=== PATIENT | female | born 1995 | race Caucasian/White ===

== ENCOUNTER 2018-12-09 14:20 | Emergency (ER) | payer OTHER, BC ==
[2018-12-09 14:20] VITALS: BP 164/92
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
[2018-12-09] MEDS ORDERED: IV NORMAL SALINE 1,000ML 1,000 ML IV ONE (15:30)
[2018-12-09] MEDS ORDERED: KETOROLAC 30 MG/ML VIAL. IV ONE (15:30)
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
[2018-12-09] MEDS ORDERED: diphenhydrAMINE 50 MG/ML VIAL IVP ONE (15:45)
[2018-12-09] MEDS ORDERED: METOCLOPRAMIDE HCL 10 MG/2 ML VIAL. IV ONE (15:45)
[2018-12-09 15:47] LABS: BASO # 0.1 x10^3/uL (0.0-0.2); BASO % 2 % (0-3); EOS # 0.2 x10^3/uL (0.0-0.7); EOS % 3 % (0-3); HEMATOCRIT 42.7 % (36.0-47.0); HEMOGLOBIN 14.5 g/dL (12.0-15.5); LYMPH # 1.7 x10^3/uL (1.0-4.8); LYMPH % 24 % (24-48); MEAN CORPUSCULAR HEMOGLOBIN 28 pg (25-35); MEAN CORPUSCULAR HGB CONC 34 g/dL (31-37); MEAN CORPUSCULAR VOLUME 83 fL (79-100); MONO # 0.5 x10^3/uL (0.0-1.1); MONO % 7 % (0-9); NEUT # 4.6 x10^3uL (1.8-7.7); NEUT % 65 % (31-73); PLATELET COUNT 281 x10^3/uL (140-400); RED BLOOD COUNT 5.15 x10^6/uL (3.50-5.40); RED CELL DISTRIBUTION WIDTH 13.1 % (11.5-14.5)
[2018-12-09] MEDS ORDERED: CYCL-331 PO (15:52)
[2018-12-09] MEDS ORDERED: HYDR-3165 PO (15:52)
[2018-12-09] MEDS ORDERED: HYDROcodone/APAP 5/325MG 1 TAB TABLET PO ONE (16:00)
[2018-12-09 16:01] LABS: ALBUMIN 3.8 g/dL (3.4-5.0); ALBUMIN/GLOBULIN RATIO 0.9 (1.0-1.7); CALCIUM 9.1 mg/dL (8.5-10.1); CREATININE 0.7 mg/dL (0.6-1.0); GFR 105.6; POTASSIUM 4.3 mmol/L (3.5-5.1); TOTAL BILIRUBIN 0.4 mg/dL (0.2-1.0)
[2018-12-09 16:26] LABS: BACTERIA,URINE MOD /HPF (0-FEW); BILIRUBIN,URINE NEG (NEG); CLARITY,URINE CLEAR; COLOR,URINE YELLOW; GLUCOSE,URINE NEG (NEG); NITRITE,URINE NEG (NEG); RBC,URINE 0 /HPF (0-2); SQUAMOUS EPITHELIAL CELL,UR OCC /LPF; UROBILINOGEN,URINE 0.2 mg/dL (0.2 mg/dL)
== END 2018-12-09 16:15 | disposition home or self-care (01) ==
LOC: ER 14:20
DX: M25.511 Pain in right shoulder (principal); R51 Headache; M54.2 Cervicalgia; M54.89 Other dorsalgia; V49.49XA Driver injured in collision with other motor vehicles in traffic accident, initial encounter; Y93.I9 Activity, other involving external motion; Y92.488 Other paved roadways as the place of occurrence of the external cause; Y99.8 Other external cause status; G89.11 Acute pain due to trauma
CPT/HCPCS: 36415; 70450; 72125; 73030; 80053; 81001; 81025; 85025; 87086; 96374; 96375; 99284; J1200; J1885; J2765; J7030

== ENCOUNTER 2018-12-22 15:37 | Emergency (ER) | payer OTHER, BC ==
[~2018-12-22] VITALS: Ht 175.3 cm; Wt 137.3 kg
[~2018-12-22 15:37] MED LIST: CYCL-331 PO; HYDR-3165 PO
[2018-12-22 15:51] VITALS: BP 161/100
[2018-12-22] MEDS ORDERED: ORPH-16 PO (16:12)
[2018-12-22] MEDS ORDERED: MELO7.5T29 PO (16:12)
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
== END 2018-12-22 16:27 | disposition home or self-care (01) ==
LOC: ER 15:37
DX: S16.1XXD Strain of muscle, fascia and tendon at neck level, subsequent encounter (principal); M25.511 Pain in right shoulder; V49.9XXD Car occupant (driver) (passenger) injured in unspecified traffic accident, subsequent encounter
CPT/HCPCS: 99283

== ENCOUNTER 2021-08-03 21:25 | Emergency (ER) | payer BC, OTHER ==
[~2021-08-03] VITALS: Ht 175.3 cm; Wt 137.3 kg
[~2021-08-03 21:25] MED LIST changes: -CYCL-331 PO; +CYCL10TA19 PO; +MELO7.5T29 PO; +ORPH-16 PO
[2021-08-03 21:30] VITALS: BP 159/90
--- NOTE | 2021-08-03 21:58 | RAD ---
Exam: Left knee 3 views INDICATION: Injury, left knee pain TECHNIQUE: Frontal, lateral and oblique views left knee Comparisons: None FINDINGS: Bone mineralization is normal. No acute or healed fractures. Soft tissues are unremarkable. Joint spa alexi are well-maintained. IMPRESSION: No acute osseous abnormality. Electronically signed by: Anna Malone MD (08/03/2021 9:55 PM) [facility]
[2021-08-03] MEDS ORDERED: HYDR-2759 PO (22:13)
--- NOTE | 2021-08-03 22:14 | PHYS DOC ---
Past History Past Medical History: No Pertinent History Past Surgical History: Other Additional Smoking Information: VAPES Alcohol Use: Rarely Drug Use: Marijuana General Adult EDM: Chief Complaint: KNEE INJURY HPI: HPI: 26-year-old female presents with left knee pain. Patient works at [employer]. She was stepping out of a truck when she put her weight onto that leg she heard a popping sensation and she had shooting pain in the middle of her knee. She stated that it felt like almost gave out but she did not fall to the ground. This was 2 days ago. It is still painful and swollen. She has been taking ibuprofen at home. It is most difficult for her to be able to sleep. She is able to walk on it but it is painful. She denies numbness, tingling, or altered sensation. Review of Systems: Review of Systems: Constitutional: Denies fever or chills Eyes: Denies change in visual acuity HENT: Denies nasal congestion or sore throat Respiratory: Denies cough or shortness of breath Cardiovascular: Denies chest pain or edema GI: Denies abdominal pain, nausea, vomiting, bloody stools or diarrhea : Denies dysuria Musculoskeletal: Left knee pain Integument: Denies rash Neurologic: Denies headache, focal weakness or sensory changes Endocrine: Denies polyuria or polydipsia Lymphatic: Denies swollen glands Psychiatric: Denies depression or anxiety Allergies: Allergies: Allergies Coded Allergies Type Severity Reaction Last Updated Verified No Known Drug Allergies 12/09/18 No Physical Exam: PE: Constitutional: Well developed, well nourished, morbidly obese, no acute distress, non-toxic appearance. [] HENT: Normocephalic, atraumatic, bilateral external ears normal, oropharynx moist, no oral exudates, nose normal. [] Eyes: PERRLA, EOMI, conjunctiva normal, no discharge. [] Neck: Normal range of motion, no tenderness, supple, no stridor. [] Cardiovascular:Heart rate regular rhythm, no murmur [] Lungs & Thorax: Bilateral breath sounds clear to auscultation [] Abdomen: Bowel sounds normal, soft, no tenderness, no masses, no pulsatile masses. [] Skin: Warm, dry, no erythema, no rash. [] Back: No tenderness, no CVA tenderness. [] Extremities: Mild swelling of the left knee, tenderness along the joint line. Solid end feel of the ACL, PCL, medial and lateral collateral ligaments. [] Neurologic: Alert and oriented X 3, normal motor function, normal sensory function, no focal deficits noted. [] Psychologic: Affect normal, judgement normal, mood normal. [] Current Patient Data: Vital Signs: Vital Signs Date Time Temp Pulse Resp B/P (MAP) Pulse Ox O2 Delivery O2 Flow Rate FiO2 08/03/21 21:30 98.0 95 18 159/90 (113) 100 EKG: EKG: [] Radiology/Procedures: Radiology/Procedures: [] Impressions: Exam: Left knee 3 views INDICATION: Injury, left knee pain TECHNIQUE: Frontal, lateral and oblique views left knee Comparisons: None FINDINGS: Bone mineralization is normal. No acute or healed fractures. Soft tissues are unremarkable. Joint spaces are well-maintained. IMPRESSION: No acute osseous abnormality. Electronically signed by: Nathaly Foster MD (08/03/2021 9:55 PM) [facility] DICTATED AND SIGNED BY: NATHALY FOSTER MD DATE: 08/03/212153 CC: EDU BAILEY DO; PCP,NO ~MTH0 0 Heart Score: C/O Chest Pain: N/A Risk Factors: Risk Factors: DM, Current or recent (<one month) smoker, HTN, HLP, family history of CAD, obesity. Risk Scores: Score 0 - 3: 2.5% MACE over next 6 weeks - Discharge Home Score 4 - 6: 20.3% MACE over next 6 weeks - Admit for Clinical Observation Score 7 - 10: 72.7% MACE over next 6 weeks - Early Invasive Strategies Course & Med Decision Making: Course & Med Decision Making Pertinent Labs and Imaging studies reviewed. (See chart for details) The patient's exam is reassuring for no ligament injury. This is likely a strain or contusion of the inner joint. I cannot rule out a meniscal tear. We will put the patient on light duty at work for the rest of the week. I will give her a short course of [place] to help her sleep at home. If it does not improve by next week, I have recommended she see orthopedics for consideration of further evaluation of the meniscus. Patient states verbal understanding. She is stable for discharge at this time. [] Dragon Disclaimer: Dragon Disclaimer: This electronic medical record was generated, in whole or in part, using a voice recognition dictation system. Departure Departure: Impression: Primary Impression: Left knee pain Qualified Codes: M25.562 - Pain in left knee Disposition: HOME / SELF CARE / HOMELESS Condition: STABLE Referrals: PCP,NO (PCP) Patient Instructions: Knee - Cartilage (Meniscus) Injury, Knee Effusion, [id number] Scripts Hydrocodone/Acetaminophen (Hydrocodone-Acetamin 5-325 mg) 1 Each Tablet 1 EACH PO Q4-6HRS PRN for PAIN, #10 TAB Prov: EDU BAILEY DO 08/03/21 EDU BAILEY DO Aug 03, 2021 22:14
[2021-08-03] MEDS ORDERED: HYDROcodone/APAP 5/325MG 1 TAB TABLET PO ONE (22:15)
== END 2021-08-03 22:18 | disposition home or self-care (01) ==
LOC: ER 21:25
DX: M25.562 Pain in left knee (principal); R22.42 Localized swelling, mass and lump, left lower limb; F17.200 Nicotine dependence, unspecified, uncomplicated
CPT/HCPCS: 73562; 99283